=== PATIENT | male | born 1945 | race Caucasian/White ===

== ENCOUNTER 2017-03-13 23:03 | Emergency (ER) | payer SELFPAY ==
[~2017-03-13] VITALS: Ht 190.5 cm; Wt 181.4 kg
[2017-03-14 00:55] LABS: Basophils # (auto) 0 uL; Basophils % (auto) 0.4 % (0.0-2.0); Eosinophils # (auto) 0.1 uL; Eosinophils % (auto) 1.5 % (0.0-7.0); Lymphocytes # (auto) 0.8 uL; Lymphocytes % (auto) 14.4 % (10.0-50.0); Mean Corpuscular Hemoglobin 31.1 pg (28.0-32.0); Mean Corpuscular Hgb Conc. 32.4 g/dL (32.0-36.0); Mean Corpuscular Volume 95.9 fL (80.0-100.0); Monocytes # (auto) 0.4 uL; Monocytes % (auto) 8.2 % (0.0-12.0); Neutrophils # (auto) 4.1 uL; Neutrophils % (auto) 75.5 % (37.0-80.0); Platelet Count (auto) 247 10^3/uL (140-450); Red Blood Cells 4.17 10^6/uL (4.5-5.90); Red Cell Distribution Width 14.9 % (11.8-14.3); White Blood Cell 5.5 10^3/uL (4.4-10.8)
[2017-03-14] MEDS ORDERED: LORazepam 2MG/ML-1ML VIAL ONE (01:07)
[2017-03-14 01:13] LABS: Albumin 3.6 g/dL (3.4-5.0); BUN/Creatinine Ratio 12.5; Potassium 4.1 mmol/L (3.5-5.1)
[2017-03-14 01:15] LABS: Bilirubin, Total 0.5 mg/dL (0.2-1.0); Total Protein 7.4 g/dL (6.4-8.2)
[2017-03-14 01:27] LABS: INR 1.04 (0.9-1.15); Partial Thromboplastin Time 25.9 sec (22.64-33.71); Prothrombin Time 11.3 sec (9.37-12.3)
[2017-03-14] MEDS ORDERED: LORazepam 2MG/ML-1ML VIAL IV ONE (01:45)
[2017-03-14 02:55] LABS: Alcohol, Urine < 3.0 mg/dL (0-5); Amphetamine Screen, Urine NEGATIVE (NEGATIVE); Barbiturate Scree,Urine NEGATIVE (NEGATIVE); Benzodiazephine Screen, Urine NEGATIVE (NEGATIVE); Cannabinoid Screen, Urine NEGATIVE (NEGATIVE); Cocaine Screen, Urine NEGATIVE (NEGATIVE); Opiate Scree,Urine NEGATIVE (NEGATIVE); Phencyclidine Screen, Urine NEGATIVE (NEGATIVE)
[2017-03-14 02:56] LABS: Urine Amorphous Crystal MOD /hpf (None Seen); Urine Bacteria FEW /hpf (None Seen); Urine Blood 2+ /uL (Negative); Urine Hyaline Cast MOD /lpf (0 - 2); Urine Mucus FEW (None Seen); Urine Specific Gravity 1.023 (1.001-1.035); Urine WBC 211 /hpf (0 - 3)
[2017-03-14 04:39] VITALS: BP 130/82
== END 2017-03-14 04:35 | disposition home or self-care (01) ==
LOC: EDBD 23:03 → ER 23:08
DX: G40.909 Epilepsy, unspecified, not intractable, without status epilepticus (principal); N39.0 Urinary tract infection, site not specified; Z86.73 Personal history of transient ischemic attack (TIA), and cerebral infarction without residual deficits; I10 Essential (primary) hypertension; E78.5 Hyperlipidemia, unspecified; Z85.46 Personal history of malignant neoplasm of prostate
CPT/HCPCS: 36415; 70450; 71045; 80053; 80307; 81001; 83735; 83880; 84443; 85025; 85379; 85610; 85730; 96374; 99285; J2060

== ENCOUNTER 2019-06-21 16:38 | Inpatient (IN) | payer MEDICARE, OTHER ==
[~2019-06-21] VITALS: Ht 180.3 cm; Wt 144.5 kg
[2019-06-21] MEDS ORDERED: ONDANSETRON HCL 4 MG/2 ML VIAL IV PRN (17:30)
[2019-06-21] MEDS ORDERED: ACETAMINOPHEN 325 MG TAB PO PRN (17:30)
[2019-06-21] MEDS ORDERED: ALUM & MAG HYDROX-SIMETH LIQ(MAALOX) 30 ML PO ONE (17:30)
[2019-06-21] MEDS ORDERED: NITROGLYCERIN 0.4 MG SL TAB SL PRN ×2 (17:30)
[2019-06-21] MEDS ORDERED: MORPHINE SULF INJ 2 MG/ML SYRINGE 1ML IV PRN ×2 (17:30)
[2019-06-21] MEDS ORDERED: LORazepam 0.5 MG TAB PO PRN (17:30)
[2019-06-21 18:08] LABS: Basophils # (auto) 0.1 10 ^3/uL (0-0.2); Eosinophils # (auto) 0.5 10 ^3/uL (0-0.8); Eosinophils % (auto) 7.9 % (0.0-7.0); Hematocrit 42.3 % (41.0-53.0); Hemoglobin 14.4 g/dL (13.5-17.5); Lymphocytes # (auto) 1.4 10 ^3/uL (0.4-5.4); Lymphocytes % (auto) 23.8 % (10.0-50.0); Mean Corpuscular Hemoglobin 32.3 pg (28.0-32.0); Mean Corpuscular Volume 95.1 fL (80.0-100.0); Monocytes # (auto) 0.6 10 ^3/uL (0-1.3); Monocytes % (auto) 9.8 % (0.0-12.0); Neutrophils # (auto) 3.4 10 ^3/uL (1.6-8.6); Neutrophils % (auto) 57.5 % (37.0-80.0); Nucleated Red Blood Cells % 0.1 %; Platelet Count (auto) 200 10^3/uL (140-450); Red Blood Cells 4.45 10^6/uL (4.5-5.90); Red Cell Distribution Width 13.6 % (11.8-14.3); White Blood Cell 5.9 10^3/uL (4.4-10.8)
[2019-06-21] MEDS: SODIUM CHLORIDE 0.9% 1,000 ML IV SCH (18:20)
[2019-06-21 18:21] LABS: INR 1.03 (0.9-1.15)
[2019-06-21] MEDS: TAMSULOSIN HYDROCHLORIDE 0.4 MG CAP PO SCH (18:24)
[2019-06-21 18:25] LABS: Albumin 3.5 g/dL (3.4-5.0); Anion Gap 7 (5-15); Blood Urea Nitrogen 14 mg/dL (7-18); Calcium 8.9 mg/dL (8.5-10.1); Carbon Dioxide 27 mmol/L (21-32); Chloride 105 mmol/L (98-107); Glucose 94 mg/dL (74-106); Magnesium 2.1 mg/dL (1.6-2.6); Potassium 4.1 mmol/L (3.5-5.1); Sodium 139 mmol/L (136-145)
[2019-06-21 18:27] LABS: Alanine Aminotransferase 28 U/L (16-61); Aspartate Aminotransferase 21 U/L (15-37); BUN/Creatinine Ratio 14.6; GFR African American 98 mL/min; GFR Non-African American 81 mL/min
[2019-06-21 18:29] LABS: Alkaline Phosphatase 109 U/L (45-117); Bilirubin, Total 0.6 mg/dL (0.2-1.0); Total Protein 7.3 g/dL (6.4-8.2)
--- NOTE | 2019-06-21 19:46 | NUR ---
Received report Received report from SHEELA Suarez from ED. Patient room ready, awaiting arrival of patient.
[2019-06-21] MEDS ORDERED: ATORVASTATIN 20 MG TAB PO SCH (22:00)
[2019-06-21] MEDS: ENALAPRIL MALEATE 2.5 MG TAB PO SCH (22:00)
[2019-06-21 22:10] VITALS: BP 164/98
--- NOTE | 2019-06-21 22:10 | NUR ---
Telemetry admit from ER JOÃO VARGHESE admitted to Telemetry unit after SBAR received from SHEELA Suarez. Patient oriented to tania Garces RN, unit, room, bed, and unit policies regarding patient care and visiting hours. Patient now on continuous telemetry monitoring, tele box # 52 and telemetry reading on arrival to unit is SR in the 80s. Patient weighed by bedscale and encouraged to call if they need something. All questions and concerns addressed, patient verbalized understanding.
[2019-06-21] MEDS: levETIRAcetam 500 MG TAB PO SCH (22:43)
[2019-06-21] MEDS: METOPROLOL TARTRATE 25 MG TAB PO SCH (22:44)
[2019-06-21] MEDS: FAMOTIDINE 20 MG TAB PO SCH (22:44)
--- NOTE | 2019-06-21 22:56 | NUR ---
Scheduled medications non-admin Patient stated he took his once daily, morning medication before coming to hospital. Scheduled 22:00 medications for Enalapril and Lipitor held at this time due to patient stating he took them this morning as his once a day at morning medication, before he came to the hospital. All other scheduled medications given. Will continue to monitor.
[2019-06-21] MEDS ORDERED: ASPI-231 PO (23:03)
[2019-06-21] MEDS ORDERED: BICA50TA13 PO (23:03)
[2019-06-21] MEDS ORDERED: LEVE1TAB46 PO (23:03)
[2019-06-21] MEDS ORDERED: LISI40TA11 PO (23:03)
[2019-06-21] MEDS ORDERED: ATOR40TA52 PO (23:03)
[2019-06-21] MEDS ORDERED: TAMS0.4C36 PO (23:03)
[2019-06-21 23:55] VITALS: BP 164/98
[2019-06-22 04:53] VITALS: BP 141/77
[2019-06-22 06:06] LABS: Basophils # (auto) 0 10 ^3/uL (0-0.2); Basophils % (auto) 0.8 % (0.0-2.0); Eosinophils # (auto) 0.5 10 ^3/uL (0-0.8); Eosinophils % (auto) 8.9 % (0.0-7.0); Hematocrit 38.2 % (41.0-53.0); Hemoglobin 13.1 g/dL (13.5-17.5); Lymphocytes # (auto) 1.8 10 ^3/uL (0.4-5.4); Lymphocytes % (auto) 30.7 % (10.0-50.0); Mean Corpuscular Hemoglobin 32.1 pg (28.0-32.0); Mean Corpuscular Hgb Conc. 34.3 g/dL (32.0-36.0); Mean Corpuscular Volume 93.7 fL (80.0-100.0); Monocytes # (auto) 0.6 10 ^3/uL (0-1.3); Monocytes % (auto) 10.6 % (0.0-12.0); Neutrophils # (auto) 2.9 10 ^3/uL (1.6-8.6); Platelet Count (auto) 204 10^3/uL (140-450); Red Blood Cells 4.08 10^6/uL (4.5-5.90); Red Cell Distribution Width 13.8 % (11.8-14.3); White Blood Cell 5.9 10^3/uL (4.4-10.8)
[2019-06-22 06:27] LABS: INR 1.06 (0.9-1.15); Partial Thromboplastin Time 29.5 sec (23.64-32.05)
[2019-06-22 06:42] LABS: Albumin 3.2 g/dL (3.4-5.0); BUN/Creatinine Ratio 18.4; Bilirubin, Total 0.8 mg/dL (0.2-1.0); CRP High Sensitivity 1.85 mg/dL (< 0.3); Phosphorus 3.4 mg/dL (2.5-4.90); Total Protein 6.7 g/dL (6.4-8.2)
--- NOTE | 2019-06-22 07:08 | NUR ---
closing note. pt resting in semi fowlers position with eyes closed, sleep. no s/s of pain or discomfort, nor seizure activity. respirations are even and non labored on room air. bed in low locked position, call light within reach.
[2019-06-22 07:43] LABS: % Iron Saturation 32.5 % (20-55)
[2019-06-22 08:05] VITALS: BP 133/74
--- NOTE | 2019-06-22 08:21 | NUR ---
OPENING SHIFT NOTE Assumed care of patient. PT is awake and alert. No S/S of distress/SOB. Instructed on POC and to call for assist PRN. Bed low and locked position with side rails up x2. Call light within reach. Will continue to monitor for changes Q1hr and PRN.
[2019-06-22] MEDS: SODIUM CHLORIDE 0.9% 1,000 ML IV SCH ×2 (09:52→20:10)
[2019-06-22] MEDS: FAMOTIDINE 20 MG TAB PO SCH ×2 (09:52→21:18)
[2019-06-22] MEDS: ENALAPRIL MALEATE 2.5 MG TAB PO SCH ×2 (09:53→21:55)
[2019-06-22] MEDS: DOCUSATE SOD 100 MG CAP PO SCH (09:53)
[2019-06-22] MEDS: levETIRAcetam 500 MG TAB PO SCH ×2 (09:53→21:18)
[2019-06-22] MEDS: ASPirin 81 mg TAB PO SCH (09:54)
[2019-06-22] MEDS: METOPROLOL TARTRATE 25 MG TAB PO SCH ×2 (09:55→21:55)
[2019-06-22] MEDS: ENOXAPARIN SOD 40 MG/0.4 ML SYRINGE SC SCH (09:55)
[2019-06-22 10:05] LABS: Urine Bacteria FEW /hpf (None Seen); Urine Blood Negative /uL (Negative); Urine Specific Gravity 1.017 (1.001-1.035); Urine WBC 8 /hpf (0 - 3)
[2019-06-22 10:14] LABS: Alcohol, Urine < 3.0 mg/dL (0-5); Amphetamine Screen, Urine NEGATIVE (NEGATIVE); Barbiturate Scree,Urine NEGATIVE (NEGATIVE); Benzodiazephine Screen, Urine NEGATIVE (NEGATIVE); Cannabinoid Screen, Urine NEGATIVE (NEGATIVE); Cocaine Screen, Urine NEGATIVE (NEGATIVE); Opiate Scree,Urine NEGATIVE (NEGATIVE); Phencyclidine Screen, Urine NEGATIVE (NEGATIVE)
[2019-06-22 12:35] VITALS: BP_SYST 126; BP_SYST 151; BP_DIAS 70; BP_DIAS 82
[2019-06-22] MEDS ORDERED: LORazepam 2MG/ML-1ML VIAL IV PRN (15:45)
[2019-06-22 16:44] VITALS: BP 130/80
[2019-06-22] MEDS: ATORVASTATIN 20 MG TAB PO SCH ×2 (18:00→21:56)
[2019-06-22] MEDS: TAMSULOSIN HYDROCHLORIDE 0.4 MG CAP PO SCH (18:00)
--- NOTE | 2019-06-22 19:58 | NUR ---
Opening Shift Note Assumed care of patient, awake and alert. No S/S of distress/SOB or pain. Instructed on POC and to call for assist PRN, will continue to monitor for changes Q1hr and PRN.
[2019-06-22 20:35] LABS: Ferritin 111.6 ng/mL (10-322)
[2019-06-22 22:00] VITALS: BP 123/70
[2019-06-23] MEDS: SODIUM CHLORIDE 0.9% 1,000 ML IV SCH ×2 (02:55→23:34)
[2019-06-23 05:00] VITALS: BP 126/70
--- NOTE | 2019-06-23 05:07 | NUR ---
Informed also to Dr. Villalta ,patient is allergic to PCN,having rash for it before, still he ordered Rocephin.
--- NOTE | 2019-06-23 05:07 | NUR ---
Informed Dr. Villalta for patient is positive for UTI, with order of Rocephin 1gram.I.V.P.B x one now and daily.
[2019-06-23] MEDS ORDERED: cefTRIAXone 1GM/50ML D5W 50 ML IV ONE (05:15)
--- NOTE | 2019-06-23 07:21 | NUR ---
Report given to Ke Banuelos, patient is resting no distress, awaiting Cardiology consult./
--- NOTE | 2019-06-23 07:33 | NUR ---
OPENING SHIFT NOTE Resumed care of patient. PT is awake and alert. No S/S of distress or SOB. Instructed on POC and to call for assist PRN. Bed low and in locked position with side rails up x2. Call light within reach. Will continue to monitor for changes Q1hr and PRN.
[2019-06-23 08:58] VITALS: BP 146/95
[2019-06-23] MEDS: ENALAPRIL MALEATE 2.5 MG TAB PO SCH ×2 (09:10→21:59)
[2019-06-23] MEDS: DOCUSATE SOD 100 MG CAP PO SCH (09:10)
[2019-06-23] MEDS: levETIRAcetam 500 MG TAB PO SCH ×2 (09:11→21:58)
[2019-06-23] MEDS: FAMOTIDINE 20 MG TAB PO SCH ×2 (09:11→21:58)
[2019-06-23] MEDS: METOPROLOL TARTRATE 25 MG TAB PO SCH ×2 (09:11→21:59)
[2019-06-23] MEDS: ASPirin 81 mg TAB PO SCH (09:12)
[2019-06-23] MEDS: ENOXAPARIN SOD 40 MG/0.4 ML SYRINGE SC SCH (09:12)
--- NOTE | 2019-06-23 12:32 | NUR ---
PHONED RADIOLOGY REGARDING MRI. WAS TOLD THAT BRAIN MRI WOULD LIKELY NOT OCCUR UNTIL TOMORROW 06/23.
--- NOTE | 2019-06-23 12:34 | NUR ---
CALLED [facility] REGARDING EEG ORDER. NO RESPONSE. WILL RECALL LATER.
[2019-06-23 13:17] VITALS: BP 142/76
--- NOTE | 2019-06-23 14:05 | NUR ---
NO RESPONSE FROM [facility] REGARDING EEG.
[2019-06-23 16:51] VITALS: BP 138/77
[2019-06-23] MEDS: TAMSULOSIN HYDROCHLORIDE 0.4 MG CAP PO SCH (17:12)
--- NOTE | 2019-06-23 20:00 | NUR ---
IV insertion IV access obtained, via clean sterile technique by inserting 22 gauge catheter at left upper arm after attempt by Ke Gan. IV secured properly. No trauma to site. Patient tolerated procedure well.
--- NOTE | 2019-06-23 20:00 | NUR ---
IV removal IV DC'd in the right hand with sterile technique, catheter fully intact. Pressure dressing applied to site. Patient tolerated procedure well.
[2019-06-23 22:00] VITALS: BP 144/80
[2019-06-23] MEDS: ATORVASTATIN 20 MG TAB PO SCH (22:02)
[2019-06-24] VITALS (7 sets, daily range): BP systolic 118–160; BP diastolic 64–86
--- NOTE | 2019-06-24 07:30 | NUR ---
Care report given to Ke Mendoza, patient is resting no distress.
--- NOTE | 2019-06-24 07:30 | NUR ---
Opening Note Patient sitting supine. Patient AO x 4 . Patient is ambulating to bathroom. Patient has no signs of distress. Discussed POC with patient, patient understands. Patient safety measures in place, HOB 30 degrees, bed at lowest position, call light within reach, and rails padded.
[2019-06-24] MEDS: cefTRIAXone 1GM/50ML D5W 50 ML IV SCH (09:29)
[2019-06-24] MEDS: FAMOTIDINE 20 MG TAB PO SCH ×2 (09:29→22:10)
[2019-06-24] MEDS: ENOXAPARIN SOD 40 MG/0.4 ML SYRINGE SC SCH (09:34)
[2019-06-24] MEDS: ENALAPRIL MALEATE 2.5 MG TAB PO SCH ×2 (09:35→22:11)
[2019-06-24] MEDS: levETIRAcetam 500 MG TAB PO SCH ×2 (09:35→22:10)
[2019-06-24] MEDS: METOPROLOL TARTRATE 25 MG TAB PO SCH ×2 (09:36→22:11)
[2019-06-24] MEDS: DOCUSATE SOD 100 MG CAP PO SCH (09:37)
[2019-06-24] MEDS: ASPirin 81 mg TAB PO SCH (09:39)
[2019-06-24 09:56] LABS: Prolactin 7.01 ng/mL (2.8-29.2)
[2019-06-24 09:58] LABS: Folate (Folic Acid) 16.76 ng/mL (5.38-24)
--- NOTE | 2019-06-24 12:00 | NUR ---
MRI Patient taken for an MRI.
[2019-06-24] MEDS: SODIUM CHLORIDE 0.9% 1,000 ML IV SCH (12:10)
--- NOTE | 2019-06-24 14:15 | NUR ---
Social Service consult regarding Advance Directives. Attempted to provide pt with information on Advance Directives and Durable power of [employer] Form. Pt verbalized that he did not ask for paperwork and did not want it. Thanked pt and left room with form.
[2019-06-24] MEDS: TAMSULOSIN HYDROCHLORIDE 0.4 MG CAP PO SCH (17:50)
--- NOTE | 2019-06-24 19:30 | NUR ---
Opening Shift Note Assumed care of patient after receiving report from SHEELA Mendoza. Patient is awake and alert with no S/S of distress/SOB or pain. Instructed on POC and to call for assist PRN, will continue to monitor for changes Q1hr and PRN.
--- NOTE | 2019-06-24 19:30 | NUR ---
CLOSING SHIFT NOTE ENDORSED CARE TO PIPELINES SUPERVISOR RN ENOC. PATIENT HAS NO S/S OF DISTRESS/SOB OR PAIN AT THIS TIME.
--- NOTE | 2019-06-24 20:00 | NUR ---
Patient refused IV Received in report that IV was DC'd due to accidental pulling. Patient refused insertion of new IV. Patient educated on need and use of IV being present during stay, patient verbalized understanding and refused. Will continue to monitor.
--- NOTE | 2019-06-24 21:02 | NUR ---
PT down in radiology Radiology called for patient to be sent down for CT per MD Arellano orders.
[2019-06-24] MEDS: ATORVASTATIN 20 MG TAB PO SCH (22:10)
[2019-06-25] MEDS: SODIUM CHLORIDE 0.9% 1,000 ML IV SCH (01:30)
[2019-06-25 04:05] LABS: RPR Non Reactive (Non Reactive)
[2019-06-25 05:00] VITALS: BP 143/83
--- NOTE | 2019-06-25 07:01 | NUR ---
Care endorsed to SHEELA Pittman.
--- NOTE | 2019-06-25 07:02 | NUR ---
Opening Shift Note: Assumed care of patient, awake and alert. Sitting in bed eating breakfast. No S/S of distress/SOB or pain. Bed in lowest locked position, side rails up x 2, call light within reach. Patient has no IV at this time. Patient refused stating "I am a hard stick. I don't want an IV right now." Instructed on POC and to call for assist PRN, will continue to monitor for changes Q1hr and PRN.
[2019-06-25 08:37] VITALS: BP 122/69
[2019-06-25] MEDS: cefTRIAXone 1GM/50ML D5W 50 ML IV SCH (08:50)
[2019-06-25] MEDS: ENOXAPARIN SOD 40 MG/0.4 ML SYRINGE SC SCH (09:26)
[2019-06-25] MEDS: levETIRAcetam 500 MG TAB PO SCH (09:26)
[2019-06-25] MEDS: FAMOTIDINE 20 MG TAB PO SCH (09:26)
[2019-06-25] MEDS: ENALAPRIL MALEATE 2.5 MG TAB PO SCH (09:26)
[2019-06-25] MEDS: METOPROLOL TARTRATE 25 MG TAB PO SCH (09:27)
[2019-06-25] MEDS: ASPirin 81 mg TAB PO SCH (09:27)
[2019-06-25] MEDS: DOCUSATE SOD 100 MG CAP PO SCH (09:27)
--- NOTE | 2019-06-25 10:30 | NUR ---
DR. ALBRIGHT: Dr. Calderon at bedside. discussed POC with patient.
[2019-06-25 11:12] VITALS: BP 122/69
--- NOTE | 2019-06-25 12:42 | NUR ---
Discharge instructions given as ordered. Encourage to follow up with PMD as instructed. All questions and concerns addressed. Patient verbalized understanding. Medication reconciliation form completed and copy given to patient. Patient did not have IV access. Telemetry unit returned to ICU. Patient taken to vehicle via wheelchair with all personal belongings, accompanied by staff and family member. No distress noted at time of departure.
== END 2019-06-25 12:42 | disposition home or self-care (01) | DRG 101 ==
LOC: ER 16:38 → EDBD 16:38 → TELE 16:39 → TELE-WESTW 22:14
PROVIDERS: ADMIT Hospitalist; ATTEND Family Medicine
DX: G40.209 Localization-related (focal) (partial) symptomatic epilepsy and epileptic syndromes with complex partial seizures, not intractable, without status epilepticus (principal); I50.40 Unspecified combined systolic (congestive) and diastolic (congestive) heart failure; N39.0 Urinary tract infection, site not specified; Z68.41 Body mass index [BMI] 40.0-44.9, adult; R55 Syncope and collapse; E66.01 Morbid (severe) obesity due to excess calories; M12.9 Arthropathy, unspecified; E78.00 Pure hypercholesterolemia, unspecified; F03.90 Unspecified dementia, unspecified severity, without behavioral disturbance, psychotic disturbance, mood disturbance, and anxiety; E78.5 Hyperlipidemia, unspecified; G89.29 Other chronic pain; I11.0 Hypertensive heart disease with heart failure; N40.0 Benign prostatic hyperplasia without lower urinary tract symptoms; Z79.899 Other long term (current) drug therapy; Z83.3 Family history of diabetes mellitus; Z86.73 Personal history of transient ischemic attack (TIA), and cerebral infarction without residual deficits; Z85.46 Personal history of malignant neoplasm of prostate; Z79.82 Long term (current) use of aspirin
CPT/HCPCS: 36415; 70450; 71045; 80053; 80307; 81001; 82550; 82607; 82728; 82746; 83036; 83540; 83550; 83605; 83615; 83735; 83880; 84100; 84146; 84443; 84484; 85025; 85045; 85610; 85652; 85730; 86141; 86592; 87040; 93005; 93306; 93886; 95819; 96360; G0378; J0696